=== PATIENT | female | born 1950 | race Caucasian/White ===

== ENCOUNTER 2024-02-23 22:57 | Emergency (ER) | payer MEDICARE ==
[~2024-02-23] VITALS: Ht 170.2 cm; Wt 75.7 kg
[2024-02-23] MEDS ORDERED: ASPIRIN 81 MG CHEW PO ONE (23:15)
[2024-02-23] MEDS ORDERED: IRBESARTAN-HCT1 EAC1 PO (23:15)
[2024-02-23] MEDS ORDERED: NITROGLYCERIN 0.4 MG SUBL SL PRN (23:15)
[2024-02-23] MEDS ORDERED: NORVASC5 MG PO (23:15)
[2024-02-23] MEDS ORDERED: OXYBUTYNIN CHLO10 MG PO (23:15)
[2024-02-23 23:16] LABS: EOSINOPHILS 3.2 % (0-6); HEMATOCRIT 46.4 % (35.0-50.0); HEMOGLOBIN 15.5 g/dL (12.0-18.0); MCH 30.1 (27-36); MCHC 33.4 g/dl (30-36); MCV 90.3 fl (81-99); MONOCYTES 8.5 % (0-12); NEUTROPHILS 49.3 % (39-80); PLATELET COUNT 222 K/uL (140-440); RBC 5.13 M/ul (4.3-5.7); RDW 13.2 (10.5-15.0)
[2024-02-23] MEDS ORDERED: TRAZODONE HCL50 MG PO (23:16)
[2024-02-23] MEDS ORDERED: FLUOXETINE HCL20 M1 PO (23:16)
[2024-02-23 23:40] LABS: ALBUMIN 3.8 g/dL (3.4-5.0); ALBUMIN/GLOBULIN RATIO 0.95 (1.1-2.4); ANION GAP 10.5 (7-21); BILIRUBIN, TOTAL 0.9 ng/dL (0.2-1.0); BUN/CREATININE RATIO 26.58 (6.0-28.6); CREATININE, SERUM 0.79 mg/dL (0.55-1.02); MAGNESIUM 1.8 mg/dL (1.8-2.4); POTASSIUM 3.5 mmol/L (3.5-5.1); PROTEIN, TOTAL 7.8 g/dL (6.4-8.2)
[2024-02-24 01:00] VITALS: BP 127/62
--- NOTE | 2024-02-26 14:45 | EKG ---
[facility] [address] [facility] [place], [place] [address] Signed Normal sinus rhythm with sinus arrhythmia Nonspecific ST and T wave abnormality Prolonged QT Abnormal ECG No previous ECGs available Confirmed by Riddhi Jacobo MD ([id number]) on 02/26/2024 2:44:48 PM Electronically Signed By: RIDDHI JACOBO MD 02/26/24 1445 PATIENT NAME: KVNG ALEXANDER Electrocardiogram DATE OF : 54 PHYSICIAN: RIDDHI JACOBO MD REPORT #: [id number] REPORT IS CONFIDENTIAL AND NOT TO BE RELEASED WITHOUT AUTHORIZATION
== END 2024-02-24 01:00 | disposition home or self-care (01) ==
LOC: ED 22:57
PROVIDERS: Internal Medicine
DX: R07.89 Other chest pain (principal); Z79.899 Other long term (current) drug therapy
CPT/HCPCS: 36415; 71045; 80053; 83735; 83880; 84484; 85025; 85379; 93005; 93010; 99285-25; A9270